=== PATIENT | female | born 1955 | race American Indian/Alaskan Native ===

== ENCOUNTER 2017-07-10 08:53 | Emergency (ER) | payer OTHER ==
[2017-07-10 09:03] VITALS: BMI 30.5
--- NOTE | 2017-07-10 09:31 | ED PDOC ---
Lower Extremity Pain/Injury Time Seen by Provider: 07/10/17 09:13 Chief Complaint (Nursing): Lower Extremity Problem/Injury Chief Complaint (Provider): Lower Extremity Problem/Injury History Per: Patient History/Exam Limitations: no limitations Onset/Duration Of Symptoms: Days (x4) Current Symptoms Are (Timing): Still Present Additional Complaint(s): 61 year old female, [employer] employee with medical history of hypertension and hypercholesterolemia, who presents to the emergency department with a complaint of left knee pain on weight bearing and extension associated with popping sensation status post transporting a patient in hospital up a ramp 4 days ago. Patient reported self-treatment with Epsom salt soak for relief. Denied any further medical complaints. PMD: none provided Past Medical History Reviewed: Historical Data, Nursing Documentation, Vital Signs Vital Signs: Last Vital Signs Temp 98.3 F 07/10/17 09:00 Pulse 69 07/10/17 09:00 Resp 16 07/10/17 09:00 BP 151/66 H 07/10/17 09:00 Pulse Ox 100 07/10/17 09:00 - Medical History PMH: Anxiety, HTN, Hypercholesterolemia Denies: Chronic Kidney Disease - Surgical History Surgical History: Denies: No Surg Hx - Family History Family History: States: Unknown Family Hx - Social History Current smoker - smoking cessation education provided: No Ex-Smoker (has not smoked in the last 12 months): No Alcohol: Occasional Drugs: Denies - Immunization History Hx Tetanus Toxoid Vaccination: No Hx Influenza Vaccination: Yes Hx Pneumococcal Vaccination: Yes - Home Medications Home Medications: Ambulatory Orders Medication Instructions Recorded ALPRAZolam [Xanax] 1 mg PO BID PRN 10/24/13 Ezetimibe/Simvastatin [Vytorin 10 1 tab PO QOTHERDAY 03/06/15 mg-20 mg] Valsartan [Diovan] 160 mg PO DAILY 08/14/15 Ciprofloxacin [Cipro] 1 tab PO BID #14 tab 04/27/17 Dicyclomine [Bentyl] 20 mg PO TID PRN #12 tab 04/27/17 Metoclopramide [Reglan] 1 tab PO TID PRN #25 tab 04/27/17 Metronidazole [Flagyl] 500 mg PO BID #14 tab 04/27/17 Naproxen [Naprosyn] 500 mg PO BID PRN #20 tablet 07/10/17 - Allergies Allergies/Adverse Reactions: Allergies Allergy/AdvReac Type Severity Reaction Status Date / Time No Known Allergies Allergy Verified 03/02/17 13:42 Review of Systems ROS Statement: Except As Marked, All Systems Reviewed And Found Negative Constitutional: Negative for: Fever, Chills Musculoskeletal: Positive for: Leg Pain (left knee). Negative for: Other (left knee swelling or calf/behind knee tenderness) Physical Exam - Reviewed Nursing Documentation Reviewed: Yes Vital Signs Reviewed: Yes - Physical Exam Appears: Positive for: No Acute Distress, Uncomfortable Head Exam: Positive for: ATRAUMATIC, NORMAL INSPECTION, NORMOCEPHALIC Back: Positive for: Normal Inspection, Other (L5-S1: 5/5 strength) Extremity: Positive for: Normal ROM (good dorsal and plantar flexion of left foot with normal sensation), Tenderness (left anterior portion below patella mildly). Negative for: Pedal Edema (or erythma/effusion bilaterally), Deformity (left knee), Other (hip pain or joint line tenderness) - ECG O2 Sat by Pulse Oximetry: 100 (RA) Pulse Ox Interpretation: Normal - Radiology X-Ray: Viewed By Pr X-Ray Interpretation: No Acute Disease Medical Decision Making Medical Decision Making: Initial Impression: Left knee strain without evidence of meniscal tear Initial Plan: * Xray knee (left) * Tylenol 975mg PO Scribe Attestation: Documented by Fallon Harris, acting as a scribe for Veda Gaines MD. Provider Scribe Attestation: All medical record entries made by the Scribe were at my direction and personally dictated by me. I have reviewed the chart and agree that the record accurately reflects my personal performance of the history, physical exam, medical decision making, and the department course for this patient. I have also personally directed, reviewed, and agree with the discharge instructions and disposition. Disposition - Clinical Impression Clinical Impression: Knee strain - Patient ED Disposition Is Patient to be Admitted: No Doctor Will See Patient In The: Office Counseled Patient/Family Regarding: Diagnosis, Need For Followup, Rx Given - Disposition Disposition: Routine/Home Disposition Time: 10:15 Condition: STABLE Prescriptions: Naproxen [Naprosyn] 500 mg PO BID PRN #20 tablet PRN Reason: Pain, Moderate (4-7) Instructions: Knee Pain (ED) Forms: [facility] ([place]), [facility] ED School/Work Excuse - POA Present On Arrival: Falls Or Trauma
[2017-07-10 10:31] VITALS: BP 126/78; PULSE 78; RESP 18; TEMP 98; O2SAT 98
--- NOTE | 2017-07-10 11:17 | RAD ---
PROCEDURE: Left Knee Radiographs. HISTORY: Pain. COMPARISON: None. FINDINGS: BONES: No acute fracture. JOINTS: Tricompartmental narrowing. JOINT EFFUSION: None. OTHER FINDINGS: Quadriceps tendon enthesophyte. IMPRESSION: No demonstrated fracture or dislocation. Mild degenerative changes.
== END 2017-07-10 10:44 | disposition home or self-care (01) ==
LOC: H.ER 08:53
DX: S86.912A Strain of unspecified muscle(s) and tendon(s) at lower leg level, left leg, initial encounter (principal); X50.9XXA Other and unspecified overexertion or strenuous movements or postures, initial encounter; Y92.234 Operating room of hospital as the place of occurrence of the external cause; E78.00 Pure hypercholesterolemia, unspecified; F41.9 Anxiety disorder, unspecified; I10 Essential (primary) hypertension; M17.12 Unilateral primary osteoarthritis, left knee

== ENCOUNTER 2017-08-10 08:12 | Emergency (ER) | payer OTHER ==
[2017-08-10 08:18] VITALS: BMI 30.7
[2017-08-10 08:20] VITALS: O2SAT 98
[2017-08-10 09:25] LABS: BASO % 0.9 % (0.0-2.0); EOS # 0.1 K/uL (0.0-0.7); EOS % 2.9 % (0.0-4.0); HEMOGLOBIN 12.5 g/dL (12.0-16.0); LYMPH # 1.5 K/uL (1.0-4.3); LYMPH % 34.6 % (20.0-40.0); MEAN CELL VOLUME 85.5 fl (81.0-99.0); MEAN CORPUSCULAR HEMOGLOBIN 28.7 pg (27.0-31.0); MEAN CORPUSCULAR HGB CONC 33.5 g/dL (33.0-37.0); MEAN PLATELET VOLUME 9.2 fl (7.2-11.7); MONO # 0.4 K/uL (0.0-0.8); MONO % 8.3 % (0.0-10.0); NEUT # 2.3 K/uL (1.8-7.0); NEUT % 53.3 % (50.0-75.0); NRBC % 0.1 % (0.0-0.0); RBC 4.36 Mil/uL (3.80-5.20); RED CELL DISTRIBUTION WIDTH 14.7 % (11.5-14.5); WHITE BLOOD COUNT 4.2 K/uL (4.8-10.8)
--- NOTE | 2017-08-10 09:30 | ED PDOC ---
HPI: Chest Pain Time Seen by Provider: 08/10/17 08:35 Chief Complaint (Nursing): Chest Pain Chief Complaint (Provider): Chest Pain History Per: Patient History/Exam Limitations: no limitations Onset/Duration Of Symptoms: Days (x 3) Current Symptoms Are (Timing): Intermittent Episodes Additional Complaint(s): Ms. Araujo is a 61 year old female who presents to the ED with intermittent, non-exertional, non-pleuritic chest pain for 3 days. Pain is not reproduced with any movements. Associated symptoms include upper back pain, shortness of breath, nausea and generalized weakness for the past 3 days. No fever, cough or syncope. Patient states she is not feeling well. 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 States her job is very stressful and believes stress is causing her symptoms. Patient has a history of anxiety and takes medications for it. PMD: Doctor in [place] Against Medical Advice - AMA Patient Left Against Medical Advice: The patient declines admission to the hospital and wishes to leave the Emergency Department. This action is against my medical advice. This decision was made with informed refusal. The patient was told that admission to the hospital is necessary. Explanation of the reasons why were discussed. The risks of leaving were explained to the patient and include, but are not limited to, worsening of known or currently unknown conditions, permanent disability and from undiagnosed or untreated conditions. The patient has the capacity to make this informed decision and understands my explanation of the current medical problem and risks of leaving. The patient voluntarily accepts these risks and signed an AMA form documenting our conversation. The patient was given the opportunity to ask questions and reconsider. The patient was encouraged to return to the Emergency Department at any time for further care. Past Medical History Reviewed: Historical Data, Nursing Documentation, Vital Signs Vital Signs: Last Vital Signs Temp 98.7 F 08/10/17 08:18 Pulse 74 08/10/17 14:22 Resp 16 08/10/17 08:18 BP 146/77 08/10/17 08:18 Pulse Ox 98 08/10/17 14:22 - Medical History PMH: Anxiety, HTN, Hypercholesterolemia Denies: Chronic Kidney Disease - Surgical History Surgical History: - Family History Family History: States: Unknown Family Hx - Social History Current smoker - smoking cessation education provided: No Alcohol: Social Drugs: Denies - Immunization History Hx Tetanus Toxoid Vaccination: No Hx Influenza Vaccination: Yes Hx Pneumococcal Vaccination: Yes - Home Medications Home Medications: Ambulatory Orders Medication Instructions Recorded ALPRAZolam [Xanax] 1 mg PO BID PRN 10/24/13 Ezetimibe/Simvastatin [Vytorin 10 1 tab PO QOTHERDAY 03/06/15 mg-20 mg] Valsartan [Diovan] 160 mg PO DAILY 08/14/15 Ciprofloxacin [Cipro] 1 tab PO BID #14 tab 04/27/17 Dicyclomine [Bentyl] 20 mg PO TID PRN #12 tab 04/27/17 Metoclopramide [Reglan] 1 tab PO TID PRN #25 tab 04/27/17 Metronidazole [Flagyl] 500 mg PO BID #14 tab 04/27/17 Naproxen [Naprosyn] 500 mg PO BID PRN #20 tablet 07/10/17 - Allergies Allergies/Adverse Reactions: Allergies Allergy/AdvReac Type Severity Reaction Status Date / Time No Known Allergies Allergy Verified 03/02/17 13:42 SEDA Risk Score for UA/NSTEMI - SEDA Risk Score Age > 64: NO 3 or more CAD Risk Factors: YES Known CAD (Stenosis greater than 50%): NO Aspirin use in past 7 days: NO Severe Angina: NO EKG ST changes greater than 0.5mm: NO Positive Cardiac Marker: NO SEDA Score: 1 Risk %: 5% Wells Criteria for PE - Wells Criteria for Pulmonary Embolism Clinical Signs and Symptoms of DVT: No P.E is #1 Diagnosis, or Equally Likely: No Heart Rate >100: No Immobilization at least 3 days;Surgery previous 4 weeks: No Previous, objectively diagnosed PE or DVT: No Hemoptysis: No Malignancy w/treatment within 6 months, or palliative: No Total Score: 0 Review of Systems ROS Statement: Except As Marked, All Systems Reviewed And Found Negative Constitutional: Positive for: Weakness (Generalized). Negative for: Fever Cardiovascular: Positive for: Chest Pain Respiratory: Positive for: Shortness of Breath. Negative for: Cough Gastrointestinal: Positive for: Nausea Musculoskeletal: Positive for: Back Pain (Upper) Neurological: Negative for: Other (Syncope) Physical Exam - Reviewed Nursing Documentation Reviewed: Yes Vital Signs Reviewed: Yes - Physical Exam Appears: Positive for: Well, Non-toxic Head Exam: Positive for: ATRAUMATIC, NORMAL INSPECTION, NORMOCEPHALIC Skin: Positive for: Normal Color, Warm, Dry Eye Exam: Positive for: Normal appearance, EOMI, PERRL ENT: Positive for: Normal ENT Inspection Neck: Positive for: Normal Cardiovascular/Chest: Positive for: Regular Rate, Rhythm Respiratory: Negative for: Accessory Muscle Use, Respiratory Distress Gastrointestinal/Abdominal: Positive for: Normal Exam Extremity: Positive for: Normal ROM. Negative for: Deformity Neurologic/Psych: Positive for: Alert, special education professor II-XII, Oriented (x 3) - Laboratory Results Result Diagrams: 08/10/17 09:05 08/10/17 09:05 - ECG ECG Rhythm: Positive for: Normal QRS, Sinus Rhythm. Negative for: ST/T Changes Rate: 74 O2 Sat by Pulse Oximetry: 98 (RA) Pulse Ox Interpretation: Normal Medical Decision Making Medical Decision Making: Time: 08:56 Impression(s):Chest Pain Differentials include, but limited to: Acute Coronary Syndrome, Pulmonary Embolism, other conditions considered Plan: - EKG - BMP - Troponin I - ED Urine Dipstick - CBC - D-Dimer - Chest X-Ray (+) Elevated D-Dimer (476 ng/mlDDU) Time: 09:53 Chest X-Ray FINDINGS: LUNGS: No acute infiltrate identified bilaterally. PLEURA: No pneumothorax or pleural fluid seen. CARDIOVASCULAR: Normal. OSSEOUS STRUCTURES: No significant abnormalities. VISUALIZED UPPER ABDOMEN: Normal. OTHER FINDINGS: None. IMPRESSION: No interval acute cardiopulmonary disease appreciated. Time: 10:18 - CT Angio Chest PE Protocol Time: 13:20 CT Angio Chest FINDINGS: PULMONARY ARTERIES: The visualized portions of the pulmonary trunk, right and left main, lobar, segmental and proximal subsegmental branches of the pulmonary arteries are well opacified with no definitive filling defects seen to suggest acute pulmonary embolus. Pulmonary trunk measures approximately 2.35 cm. AORTA: See below heart section of this report. No thoracic aortic aneurysm. LUNGS: No evidence of acute infiltrates. . Scattered focal small areas of localized pleural based thickening and adjacent parenchymal scarring seen in both posterior lower lung zones. There also appears to be some minimal linear scarring in the left lung base adjacent to the adjacent to the posterior margin of the pericardium extending to the diaphragmatic surfaces. PLEURAL SPACES: As above. No effusion. No evidence of pneumothorax. HEART: Heart size is within range of normal. No significant pericardial effusion. Ascending thoracic aorta measures approximately 3.0 cm and descending thoracic aorta measures approximately 1.92 cm. LYMPH NODES: No significant mediastinal or hilar adenopathy. Central airways are midline and patent. Note is made of a discrete somewhat elliptical shaped nonenhancing low- attenuation lesion anterior aspect left lobe thyroid gland measuring 6.4 mm in greatest transverse diameter. . There may also be a smaller septated component medially on along the isthmus. Followup thyroid ultrasound could be performed for further evaluation. BONES, CHEST WALL: Mild multilevel degenerative spondylosis of the thoracic spine. There are no acute compression fractures no retropulsed fragments. OTHER FINDINGS: Unremarkable. IMPRESSION: No evidence of large central pulmonary embolus. . . There appears to be some scattered areas of localized pleural thickening and adjacent parenchymal scarring along the posterior lower lung zones. Mild linear scarring changes seen in the left retrocardiac lung base. . Follow-up CT six month interval could be performed to assess stability of these pleural-based changes. The small low-attenuation nodular density left lobe thyroid gland and isthmus. Followup thyroid ultrasound recommended as detailed above. Scribe Attestation: Documented by Ad Tan, acting as a scribe for Tamy Marin MD. Provider Scribe Attestation: All medical record entries made by the Scribe were at my direction and personally dictated by me. I have reviewed the chart and agree that the record accurately reflects my personal performance of the history, physical exam, medical decision making, and the department course for this patient. I have also personally directed, reviewed, and agree with the discharge instructions and disposition. Disposition - Clinical Impression Clinical Impression: Chest pain, Left against medical advice - Patient ED Disposition Is Patient to be Admitted: No Doctor Will See Patient In The: Office Counseled Patient/Family Regarding: Studies Performed, Diagnosis, Need For Followup - Disposition Referrals: [facility] [place] [Outside] Disposition: Against Medical Advice Disposition Time: 14:21 Condition: GOOD Additional Instructions: Return for worsening. Take baby aspiring daily. Follow up with your PCP in 2-3 days. Instructions: Chest Pain, Leaving Against Medical Advice
[2017-08-10 09:35] VITALS: PULSE 74
[2017-08-10 09:36] LABS: BLOOD UREA NITROGEN 18 mg/dl (7-17); CALCIUM 9.4 mg/dL (8.4-10.2); GFR AFRICAN-AMERICAN > 60; GFR NON-AFRICAN AMERICAN > 60
--- NOTE | 2017-08-10 09:54 | RAD ---
PROCEDURE: CHEST RADIOGRAPH, 1 VIEW HISTORY: chest pain COMPARISON: Chest radiographs 08/11/2013 FINDINGS: LUNGS: No acute infiltrate identified bilaterally. PLEURA: No pneumothorax or pleural fluid seen. CARDIOVASCULAR: Normal. OSSEOUS STRUCTURES: No significant abnormalities. VISUALIZED UPPER ABDOMEN: Normal. OTHER FINDINGS: None. IMPRESSION: No interval acute cardiopulmonary disease appreciated.
[2017-08-10] MEDS ORDERED: Iodixanol 320 MG/ML 100 ML BOTTLE IV ONE (12:40)
--- NOTE | 2017-08-10 13:21 | CT ---
PROCEDURE: CT angiogram of the chest dated 08/10/2017 HISTORY: Chest pain. COMPARISON: Correlation made with concurrent chest radiograph as well as prior CT scan abdomen pelvis 12/21/2013 which imaged the lung bases. TECHNIQUE: Contiguous helical/ transaxial computed tomography images were obtained of the chest in the pulmonary arterial phase of enhancement. Coronal and sagittal reformatted images were created and reviewed. Intravenous contrast dose: 99 cc Visipaque 320 contrast material Radiation dose: Total exam DLP = 466.22 mGy-cm. This CT exam was performed using one or more of the following dose reduction techniques: Automated exposure control, adjustment of the mA and/or kV according to patient size, and/or use of iterative reconstruction technique. FINDINGS: PULMONARY ARTERIES: The visualized portions of the pulmonary trunk, right and left main, lobar, segmental and proximal subsegmental branches of the pulmonary arteries are well opacified with no definitive filling defects seen to suggest acute pulmonary embolus. Pulmonary trunk measures approximately 2.35 cm. AORTA: See below heart section of this report. No thoracic aortic aneurysm. LUNGS: No evidence of acute infiltrates. . Scattered focal small areas of localized pleural based thickening and adjacent parenchymal scarring seen in both posterior lower lung zones. There also appears to be some minimal linear scarring in the left lung base adjacent to the adjacent to the posterior margin of the pericardium extending to the diaphragmatic surfaces. PLEURAL SPACES: As above. No effusion. No evidence of pneumothorax. HEART: Heart size is within range of normal. No significant pericardial effusion. Ascending thoracic aorta measures approximately 3.0 cm and descending thoracic aorta measures approximately 1.92 cm. LYMPH NODES: No significant mediastinal or hilar adenopathy. Central airways are midline and patent. Note is made of a discrete somewhat elliptical shaped nonenhancing low-attenuation lesion anterior aspect left lobe thyroid gland measuring 6.4 mm in greatest transverse diameter. . There may also be a smaller septated component medially on along the isthmus. Followup thyroid ultrasound could be performed for further evaluation. BONES, CHEST WALL: Mild multilevel degenerative spondylosis of the thoracic spine. There are no acute compression fractures no retropulsed fragments. OTHER FINDINGS: Unremarkable. IMPRESSION: No evidence of large central pulmonary embolus. . . There appears to be some scattered areas of localized pleural thickening and adjacent parenchymal scarring along the posterior lower lung zones. Mild linear scarring changes seen in the left retrocardiac lung base. . Follow-up CT six month interval could be performed to assess stability of these pleural-based changes. The small low-attenuation nodular density left lobe thyroid gland and isthmus. Followup thyroid ultrasound recommended as detailed above.
[2017-08-10 14:34] VITALS: BP 140/80; RESP 18; TEMP 98.5
--- NOTE | 2017-08-10 19:09 | CARD ---
APPROVED REPORT EKG Measurement Heart [id number] <Conclusion> Normal sinus rhythm Normal ECG
== END 2017-08-10 17:14 | disposition left against medical advice (07) ==
LOC: H.ER 08:12
DX: R07.89 Other chest pain (principal); E78.00 Pure hypercholesterolemia, unspecified; F41.9 Anxiety disorder, unspecified; I10 Essential (primary) hypertension
CPT/HCPCS: 71045; 71275; 80048; 82948; 84484; 85025; 85378; 93005; 99284; Q9967

== ENCOUNTER 2018-05-01 11:52 | Emergency (ER) | payer BC, OTHER ==
[2018-05-01 12:04] VITALS: BP 164/61; PULSE 72; TEMP 97.1; O2SAT 100; BMI 30.5
--- NOTE | 2018-05-01 12:17 | ED PDOC ---
Lower Extremity Pain/Injury Time Seen by Provider: 05/01/18 12:10 Chief Complaint (Nursing): Lower Extremity Problem/Injury Chief Complaint (Provider): right foot pain History Per: Patient History/Exam Limitations: no limitations Onset/Duration Of Symptoms: Days (x6) Current Symptoms Are (Timing): Still Present Additional Complaint(s): Gayle Torrez is a 62 year old female, with no significant past medical history, who presents to the emergency department complaining of right foot pain onset for x6 days after a toolbox fell on her foot. Patient states she initially had no pain but it has progressively worsen since onset. Patient is able to bear weight but notes pain when touching foot. She denies any other injuries or medical complaints. PMD: None provided. Past Medical History Reviewed: Historical Data, Nursing Documentation, Vital Signs Vital Signs: Last Vital Signs Temp 97.1 F L 05/01/18 12:03 Pulse 72 05/01/18 12:03 Resp BP 164/61 H 05/01/18 12:03 Pulse Ox 100 05/01/18 12:03 - Medical History PMH: Anxiety, HTN, Hypercholesterolemia Denies: Chronic Kidney Disease - Surgical History Surgical History: - Family History Family History: States: Unknown Family Hx - Immunization History Hx Tetanus Toxoid Vaccination: No Hx Influenza Vaccination: Yes Hx Pneumococcal Vaccination: Yes - Home Medications Home Medications: Ambulatory Orders Medication Instructions Recorded ALPRAZolam [Xanax] 1 mg PO BID PRN 10/24/13 Ezetimibe/Simvastatin [Vytorin 10 1 tab PO QOTHERDAY 03/06/15 mg-20 mg] Valsartan/Hydrochlorothiazide 1 tab PO DAILY 12/30/17 [Valsartan and Hydrochlorothiazide 25 mg-160 M] Ibuprofen [Motrin] 600 mg PO Q8 PRN #21 tab 05/01/18 - Allergies Allergies/Adverse Reactions: Allergies Allergy/AdvReac Type Severity Reaction Status Date / Time No Known Allergies Allergy Verified 12/30/17 16:09 Review of Systems ROS Statement: Except As Marked, All Systems Reviewed And Found Negative Musculoskeletal: Positive for: Foot Pain (right) Physical Exam - Reviewed Nursing Documentation Reviewed: Yes Vital Signs Reviewed: Yes - Physical Exam Appears: Positive for: No Acute Distress Head Exam: Positive for: ATRAUMATIC, NORMAL INSPECTION, NORMOCEPHALIC Skin: Positive for: Normal Color, Warm, Dry Eye Exam: Positive for: Normal appearance, EOMI, PERRL Neck: Positive for: Normal, Painless ROM Extremity: Positive for: Normal ROM (lower extremities), Other (Pain on dorsum of right foot with no erythema or ecchymosis). Negative for: Tenderness (ankle, knee or leg), Deformity, Swelling Neurologic/Psych: Positive for: Alert, Oriented. Negative for: Motor/Sensory Deficits - ECG O2 Sat by Pulse Oximetry: 100 (RA) Pulse Ox Interpretation: Normal - Radiology X-Ray: Viewed By Me (no sign of fracture.) Medical Decision Making Medical Decision Making: Initial Impression: Foot pain Initial Plan: --Foot right 3 views routine [RAD] --Reevaluation Patient declined pain medication. Scribe Attestation: Documented by Bigg Zepeda, acting as a scribe for Logan Ramos PA-C Provider Scribe Attestation: All medical record entries made by the Scribe were at my direction and personally dictated by me. I have reviewed the chart and agree that the record accurately reflects my personal performance of the history, physical exam, medical decision making, and the department course for this patient. I have also personally directed, reviewed, and agree with the discharge instructions and disposition. Disposition - Clinical Impression Clinical Impression: Contusion, foot - Patient ED Disposition Is Patient to be Admitted: No - Disposition Referrals: [facility]iatry [facility] [Outside] Disposition: Routine/Home Disposition Time: 12:40 Condition: FAIR Prescriptions: Ibuprofen [Motrin] 600 mg PO Q8 PRN #21 tab PRN Reason: Pain, Moderate (4-7) Instructions: Contusion (DC)
[2018-05-01 12:19] VITALS: RESP 18
--- NOTE | 2018-05-01 16:30 | RAD ---
Date of service: 05/01/2018 PROCEDURE: Right Foot Radiographs. HISTORY: right foot contusion COMPARISON: None. FINDINGS: BONES: No acute fracture or destructive bony lesion identified. JOINTS: No subluxation or dislocation appreciated. Degenerative cortical sclerosis appreciate throughout the interphalangeal joints diffusely. SOFT TISSUES: Normal. OTHER FINDINGS: None. IMPRESSION: No acute fracture or dislocation right foot. Limited degenerative changes seen throughout the digits as discussed above.
== END 2018-05-01 12:51 | disposition home or self-care (01) ==
LOC: H.ER 11:52
DX: S90.31XA Contusion of right foot, initial encounter (principal); I10 Essential (primary) hypertension; Z79.899 Other long term (current) drug therapy; W20.8XXA Other cause of strike by thrown, projected or falling object, initial encounter

== ENCOUNTER 2018-06-14 10:23 | Emergency (ER) | payer OTHER ==
[2018-06-14 10:25] VITALS: BMI 30.7
[2018-06-14] MEDS ORDERED: Sodium Chloride 0.9% 1,000 ML IV STA (11:22)
[2018-06-14 11:33] VITALS: RESP 16; TEMP 97.8; O2SAT 100
--- NOTE | 2018-06-14 12:13 | ED PDOC ---
HPI: General Adult Time Seen by Provider: 06/14/18 10:42 Chief Complaint (Nursing): Dizziness/Lightheaded History Per: Patient Current Symptoms Are (Timing): Still Present Additional Complaint(s): 62 year old with HTN, HLD, anxiety presenting with dizziness and lightheadendss. States she has been under a great deal of stress recently and has not been eating well. States that she has felt lightheaded when walking around. States yesterday she had a headache but none today. No fevers, chills, neck stiffness, chest pain, shortness of breath. Denies room-spinning sensation. PMD: Dr. Copeland Past Medical History Reviewed: Historical Data, Nursing Documentation, Vital Signs Vital Signs: Last Vital Signs Temp 97.8 F 06/14/18 11:32 Pulse 69 06/14/18 11:32 Resp 16 06/14/18 11:32 BP 129/75 06/14/18 11:32 Pulse Ox 100 06/14/18 11:32 - Medical History PMH: Anxiety, HTN, Hypercholesterolemia Denies: Chronic Kidney Disease - Surgical History Surgical History: - Family History Family History: States: Unknown Family Hx - Immunization History Hx Tetanus Toxoid Vaccination: No Hx Influenza Vaccination: Yes Hx Pneumococcal Vaccination: Yes - Home Medications Home Medications: Ambulatory Orders Medication Instructions Recorded ALPRAZolam [Xanax] 1 mg PO BID PRN 10/24/13 Ezetimibe/Simvastatin [Vytorin 10 1 tab PO QOTHERDAY 03/06/15 mg-20 mg] Valsartan/Hydrochlorothiazide 1 tab PO DAILY 12/30/17 [Valsartan and Hydrochlorothiazide 25 mg-160 M] Ibuprofen [Motrin] 600 mg PO Q8 PRN #21 tab 05/01/18 - Allergies Allergies/Adverse Reactions: Allergies Allergy/AdvReac Type Severity Reaction Status Date / Time No Known Allergies Allergy Verified 06/14/18 10:58 Review of Systems ROS Statement: Except As Marked, All Systems Reviewed And Found Negative Neurological: Positive for: Headache, Dizziness Physical Exam - Reviewed Nursing Documentation Reviewed: Yes Vital Signs Reviewed: Yes - Physical Exam Appears: Positive for: Well, Non-toxic, No Acute Distress Head Exam: Positive for: ATRAUMATIC, NORMAL INSPECTION, NORMOCEPHALIC Skin: Positive for: Normal Color, Warm, DRY Eye Exam: Positive for: EOMI, Normal appearance, PERRL ENT: Positive for: Normal ENT Inspection Neck: Positive for: Normal, Painless ROM Cardiovascular/Chest: Positive for: Regular Rate, Rhythm Respiratory: Positive for: CNT, Normal Breath Sounds Gastrointestinal/Abdominal: Positive for: Normal Exam, Soft Back: Positive for: Normal Inspection Extremity: Positive for: Normal ROM Neurologic/Psych: Positive for: Alert, nurse staff community health II-XII, Oriented, Cerebellar Tests (Normal), Gait (Normal). Negative for: Motor/Sensory Deficits - Laboratory Results Result Diagrams: 06/14/18 12:02 06/14/18 12:02 - ECG O2 Sat by Pulse Oximetry: 100 Pulse Ox Interpretation: Normal Medical Decision Making Medical Decision Makin Patient presenting with dizziness --Well appearing, normal vitals --Possibly dehydrated v. electrolyte imbalance v. anxiety --Will check labs, hydrate, and re-eval 2PM --Patient feeling much improved --Advised patient to eat more foods rich in bananas --Advised rest and fluids --Very well appearing upon discharge Disposition - Clinical Impression Clinical Impression: Dizziness, Hypokalemia, Dehydration - Patient ED Disposition Is Patient to be Admitted: No - Disposition Referrals: Aydee Copeland DO [Medical Doctor] - Disposition: Routine/Home Disposition Time: 14:00 Condition: GOOD Instructions: Hypokalemia, Dehydration, Adult (DC), High Potassium Diet, Dizziness, Nonvertigo, (DC) Forms: [employer] ([place]), [facility] ED School/Work Excuse
[2018-06-14 12:29] LABS: HEMOGLOBIN 12.1 g/dL (12.0-16.0); MEAN CELL VOLUME 86.6 fl (81.0-99.0); MEAN CORPUSCULAR HEMOGLOBIN 28.5 pg (27.0-31.0); MEAN CORPUSCULAR HGB CONC 32.9 g/dL (33.0-37.0); RBC 4.26 Mil/uL (3.80-5.20); RED CELL DISTRIBUTION WIDTH 14.3 % (11.5-14.5); WHITE BLOOD COUNT 4.8 K/uL (4.8-10.8)
[2018-06-14 12:35] LABS: BLOOD UREA NITROGEN 23 mg/dl (7-17); CALCIUM 8.9 mg/dL (8.4-10.2); GFR NON-AFRICAN AMERICAN > 60
[2018-06-14 13:04] VITALS: BP 143/73; PULSE 70
== END 2018-06-14 14:40 | disposition home or self-care (01) ==
LOC: H.ER 10:23
DX: R42 Dizziness and giddiness (principal); E87.6 Hypokalemia; E86.0 Dehydration; I10 Essential (primary) hypertension; E78.00 Pure hypercholesterolemia, unspecified
CPT/HCPCS: 80048; 85027; 96360; 99285; J7030

== ENCOUNTER 2018-08-09 12:00 | Emergency (ER) | payer OTHER ==
[2018-08-09 12:04] VITALS: BMI 31.7
[2018-08-09 12:06] VITALS: BP 145/72; PULSE 75; RESP 17; TEMP 98.4; O2SAT 100
--- NOTE | 2018-08-09 12:49 | ED PDOC ---
HPI: General Adult Time Seen by Provider: 08/09/18 12:46 Chief Complaint (Nursing): Upper Extremity Problem/Injury Chief Complaint (Provider): neck pain History Per: Patient (62 y/o female here with right sided neck pain that occurred after lifting heavy patient at work today. Patient works in patient transport. States she noted neck pain but notes worsening after aiding 2nd patient in transport. Notes feels spasm pain with turning head. Patient notes pain radiating from neck to right shoulder) Past Medical History Reviewed: Historical Data, Nursing Documentation, Vital Signs Vital Signs: Last Vital Signs Temp 98.4 F 08/09/18 12:05 Pulse 75 08/09/18 12:05 Resp 17 08/09/18 12:05 BP 145/72 08/09/18 12:05 Pulse Ox 100 08/09/18 12:05 - Medical History PMH: Anxiety, HTN, Hypercholesterolemia Denies: Chronic Kidney Disease - Surgical History Surgical History: - Family History Family History: States: Unknown Family Hx - Immunization History Hx Tetanus Toxoid Vaccination: No Hx Influenza Vaccination: Yes Hx Pneumococcal Vaccination: Yes - Home Medications Home Medications: Ambulatory Orders Medication Instructions Recorded ALPRAZolam [Xanax] 1 mg PO BID PRN 10/24/13 Ezetimibe/Simvastatin [Vytorin 10 1 tab PO QOTHERDAY 03/06/ mg-20 mg] Valsartan/Hydrochlorothiazide 1 tab PO DAILY 12/30/17 [Valsartan and Hydrochlorothiazide 25 mg-160 M] Ibuprofen [Motrin] 600 mg PO Q8 PRN #21 tab 05/01/18 Naproxen 375 mg PO Q8 PRN #21 tablet 08/09/18 diaZEpam [Valium] 5 mg PO Q6 PRN #1 tab 08/09/18 - Allergies Allergies/Adverse Reactions: Allergies Allergy/AdvReac Type Severity Reaction Status Date / Time No Known Allergies Allergy Verified 06/14/18 10:58 Review of Systems ROS Statement: Except As Marked, All Systems Reviewed And Found Negative Musculoskeletal: Positive for: Neck Pain Physical Exam - Reviewed Nursing Documentation Reviewed: Yes Vital Signs Reviewed: Yes - Physical Exam Appears: Positive for: Well, Non-toxic, No Acute Distress Head Exam: Positive for: ATRAUMATIC, NORMAL INSPECTION, NORMOCEPHALIC Skin: Positive for: Normal Color, Warm, DRY Eye Exam: Positive for: EOMI, Normal appearance, PERRL ENT: Positive for: Normal ENT Inspection Neck: Positive for: Painless ROM. Negative for: Normal (tenderness noted right side base of skull ) Cardiovascular/Chest: Positive for: Regular Rate, Rhythm Respiratory: Positive for: CNT, Normal Breath Sounds Gastrointestinal/Abdominal: Positive for: Normal Exam, Soft Back: Positive for: Normal Inspection Extremity: Positive for: Normal ROM Neurologic/Psych: Positive for: Alert, Oriented - ECG O2 Sat by Pulse Oximetry: 100 - Progress ED Course And Treament: Toradol 30mg IM x 1 dose Disposition - Clinical Impression Clinical Impression: Neck muscle strain - Disposition Disposition: Routine/Home Disposition Time: 12:50 Condition: FAIR Prescriptions: diaZEpam [Valium] 5 mg PO Q6 PRN #1 tab PRN Reason: Muscle Spasm Naproxen 375 mg PO Q8 PRN #21 tablet PRN Reason: Pain, Severe (8-10) Instructions: Muscle Strain (DC) Forms: [facility] ED School/Work Excuse
== END 2018-08-09 13:32 | disposition home or self-care (01) ==
LOC: H.ER 12:00
DX: S16.1XXA Strain of muscle, fascia and tendon at neck level, initial encounter (principal); X50.9XXA Other and unspecified overexertion or strenuous movements or postures, initial encounter; Y99.0 Civilian activity done for income or pay
CPT/HCPCS: 96372; 99283; J1885